=== PATIENT | female | born 1960 | race Caucasian/White ===

== ENCOUNTER 2017-10-01 10:35 | Outpatient (CLI) | payer BC | END 2017-10-01 10:36 | disposition home or self-care (01) | LOC: BICRAD 10:35 | PROVIDERS: ATTEND Physician Assistant | DX: R05 Cough (principal) | CPT/HCPCS: 71020 ==

== ENCOUNTER 2019-09-14 14:23 | Outpatient (CLI) | payer BC ==
--- NOTE | 2019-09-14 14:51 | RAD ---
PA AND LATERAL CHEST: HISTORY: Acute respiratory tract infection. Upper respiratory tract infection. Cough. Dyspnea. Wheezing. FINDINGS: Heart size is normal. Lungs are expanded without focal areas of consolidation, pneumothoraces or pleu ral effusions. There are degenerative changes in the spine. IMPRESSION: No radiographic evidence of acute cardiopulmonary process. POS: OFF
== END 2019-09-14 14:24 | disposition home or self-care (01) ==
LOC: BICRAD 14:23
PROVIDERS: ATTEND Family Medicine
DX: J06.9 Acute upper respiratory infection, unspecified (principal)
CPT/HCPCS: 71046

== ENCOUNTER 2020-08-29 15:40 | Outpatient (CLI) | payer OTHER ==
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
== END 2020-08-29 15:41 | disposition home or self-care (01) ==
LOC: BICRAD 15:40
PROVIDERS: ATTEND Family Medicine
DX: M79.641 Pain in right hand (principal); M19.041 Primary osteoarthritis, right hand; Z98.890 Other specified postprocedural states; V89.2XXD Person injured in unspecified motor-vehicle accident, traffic, subsequent encounter

== ENCOUNTER 2022-02-26 13:06 | Outpatient (CLI) | payer OTHER | END 2022-02-26 13:07 | disposition home or self-care (01) | LOC: BICMAMMO 13:06 | PROVIDERS: ATTEND Family Medicine | DX: Z12.31 Encounter for screening mammogram for malignant neoplasm of breast (principal); Z80.3 Family history of malignant neoplasm of breast | CPT/HCPCS: 77063; 77067 ==

== ENCOUNTER 2024-05-24 12:34 | Outpatient (CLI) | payer OTHER | END 2024-05-24 12:35 | disposition home or self-care (01) | LOC: BICMAMMO 12:34 | PROVIDERS: ATTEND Family Medicine | DX: Z12.31 Encounter for screening mammogram for malignant neoplasm of breast (principal); Z80.3 Family history of malignant neoplasm of breast | CPT/HCPCS: 77063; 77067 ==